=== PATIENT | male | born 2000 | race Caucasian/White ===

== ENCOUNTER 2020-11-25 20:11 | Emergency (ER) | payer SELFPAY ==
[2020-11-25 20:25] VITALS: BP 149/84; PULSE 95; RESP 18; TEMP 36.5; O2SAT 97; BMI 36.9
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
--- NOTE | 2020-11-26 09:37 | DCPLANNER ---
placement manager had message to schedule a follow up appointment for patient with ortho. placement manager called the ortho clinic, spoke with Radha, gave clinic patients information. placement manager was told that patients information would be printed and reviewed. Clinic will call patient with appointment information.
--- NOTE | 2020-12-02 14:26 | DCPLANNER ---
Patient had a follow up appointment scheduled for 12.02.20 with ortho - patient did attend appointment.
== END 2020-11-25 22:19 | disposition home or self-care (01) ==
PROVIDERS: Emergency Provider Nurse Practitioner Family
DX: S13.4XXA Sprain of ligaments of cervical spine, initial encounter (principal); M25.562 Pain in left knee; V89.2XXA Person injured in unspecified motor-vehicle accident, traffic, initial encounter; S62.314A Displaced fracture of base of fourth metacarpal bone, right hand, initial encounter for closed fracture; F17.290 Nicotine dependence, other tobacco product, uncomplicated
CPT/HCPCS: 29125; 72040; 73110; 73130; 73562; 99283

== ENCOUNTER → 2020-12-02 12:05 | Outpatient (BNVA) | payer SELFPAY | PROVIDERS: Referring Provider Nurse Practitioner Family; Visit Provider Specialist | DX: M79.641 Pain in right hand (principal) | CPT/HCPCS: 73130 ==

== ENCOUNTER 2020-12-02 14:05 | Outpatient (CLI) | payer SELFPAY | END 2020-12-02 14:06 | disposition home or self-care (01) | LOC: SPT 14:06 | PROVIDERS: Visit Provider Specialist | DX: Z46.89 Encounter for fitting and adjustment of other specified devices (principal); S62.324D Displaced fracture of shaft of fourth metacarpal bone, right hand, subsequent encounter for fracture with routine healing; X58.XXXD Exposure to other specified factors, subsequent encounter | CPT/HCPCS: 97760; L3984 ==

== ENCOUNTER → 2020-12-16 08:30 | Outpatient (BNVA) | payer SELFPAY | PROVIDERS: Visit Provider Specialist | DX: M79.643 Pain in unspecified hand (principal); S62.309A Unspecified fracture of unspecified metacarpal bone, initial encounter for closed fracture; S62.324A Displaced fracture of shaft of fourth metacarpal bone, right hand, initial encounter for closed fracture; X58.XXXA Exposure to other specified factors, initial encounter | CPT/HCPCS: 73130 ==

== ENCOUNTER → 2021-03-03 13:47 | Outpatient (BNVA) | payer SELFPAY | PROVIDERS: Visit Provider Specialist | DX: S62.324A Displaced fracture of shaft of fourth metacarpal bone, right hand, initial encounter for closed fracture (principal) | CPT/HCPCS: 73130 ==